=== PATIENT | female | born 1940 | race Caucasian/White ===

== ENCOUNTER → 2020-01-14 10:30 | Outpatient (CLI) | payer MEDICARE, OTHER, SELFPAY ==
--- NOTE | 2020-01-14 10:37 | DI.US.S_ITS ---
PROCEDURE: US RENAL COMPLETE INDICATIONS: NEOPLASM OF KIDNEY TECHNIQUE: Real-time scanning was performed of the kidneys and bladder, with image documentation. COMPARISON: None. FINDINGS: Kidneys: The right kidney is small in size and measures 8.7 cm in length related to previous partial nephrectomy. No recurrent mass is identified involving the right kidney. 2 renal cysts are evident on the right that have a simple appearance and measure up to 2.2 cm in diameter. There is fullness identified within the right renal pelvis, which may represent mild hydronephrosis or parapelvic cysts. No definitive hydronephrosis is present. No shadowing nephrolithiasis is appreciated. The left kidney measures 14 cm in length and the likely demonstrates compensatory hypertrophy related to previous right-sided partial nephrectomy. There is no shadowing nephrolithiasis or hydronephrosis. No solid renal lesions are evident. There are 3 cysts identified on the left kidney with the largest measuring up to 10.2 cm in diameter. Bladder: Pre-void bladder volume is 289 mL. Post-void residual is 0 mL. Pre-void images demonstrate no intraluminal masses or stones. Miscellaneous: No free pelvic fluid. IMPRESSION: 1. Essentially unremarkable bilateral kidneys, status post partial right nephrectomy. No solid renal masses or hydronephrosis is evident. 2. Bilateral renal cysts with the largest located along the inferior margin of the left kidney measuring up to 10 cm. Dictated by: Michael Buck M.D. on 01/14/2020 at 12:01 Approved by: Michael Buck M.D. on 01/14/2020 at 12:05
== END ==
PROVIDERS: PCP Internal Medicine; Referring Provider Specialist; Visit Provider Specialist
DX: C64.1 Malignant neoplasm of right kidney, except renal pelvis (principal); N28.1 Cyst of kidney, acquired; Z90.5 Acquired absence of kidney
CPT/HCPCS: 76770

== ENCOUNTER → 2022-02-02 10:11 | Outpatient (CLI) | payer MEDICARE, OTHER, SELFPAY ==
--- NOTE | 2022-02-02 10:13 | DI.US.S_ITS ---
PROCEDURE: US RENAL COMPLETE INDICATIONS: HISTORY OF RENAL CELL CARCINOMA AND UTI TECHNIQUE: Real-time scanning was performed of the kidneys and bladder, with image documentation. COMPARISON: Located Within [facility], , US RENAL COMPLETE, 01/14/2020, 10:54. FINDINGS: Kidneys: Kidneys are normal in size. Right kidney measures 8.6 cm long; left kidney measures 14.5 cm long. Right renal cortical thickness is 2.2 cm; left renal cortical thickness is 1.5 cm. Renal cortical echotexture is normal. No hydronephrosis. There is a 0.5 cm right renal calculus. There is also 2.2 cm x 1.7 cm x 1.7 cm right inferior pole cyst with possible internal debris and suggestion of irregular cyst wall. No associated vascularity. There are multiple simple cysts in the left kidney. These are seen in the superior pole, midpole, and mid/inferior pole. Superior pole cyst measures 3.1 x 1.7 x 2.4 cm. Mid renal cyst measures 3.4 x 3.4 x 3.3 cm. Mid/inferior pole cyst measures approximately 9.8 x 10.0 x 7.8 cm. No suspicious solid mass lesions. Bladder: Pre-void bladder volume is 223 mL. Post-void residual is 23 mL. Pre-void images demonstrate no intraluminal masses or stones. On pre-void images, bilateral ureteral jets were not visualized with color Doppler interrogation. (Of note, ureteral jets may not be detectable in up to 25% of cases due to insufficient differences in specific gravity between ureteral and bladder urine). Miscellaneous: No free pelvic fluid. IMPRESSION: 1. Left kidney without evidence for renal stones or hydronephrosis. 3 prominent simple left renal cysts are identified and described above. 2. A 0.5 cm nonobstructing right renal stone. No hydronephrosis. 3. A 2.2 cm inferior right renal cyst with suggestion of possible internal debris and possible irregular cyst wall. Recommend further characterization with contrast enhanced CT or MRI using renal mass protocol. Dictated by: Paul Mosley M.D. on 02/02/2022 at 17:14 Approved by: Paul Mosley M.D. on 02/02/2022 at 17:20
== END ==
PROVIDERS: PCP Internal Medicine; Referring Provider Specialist; Visit Provider Specialist
DX: Z08 Encounter for follow-up examination after completed treatment for malignant neoplasm (principal); Z85.528 Personal history of other malignant neoplasm of kidney; Z87.440 Personal history of urinary (tract) infections; N28.1 Cyst of kidney, acquired; N20.0 Calculus of kidney
CPT/HCPCS: 76770

== ENCOUNTER → 2022-03-28 10:22 | Outpatient (CLI) | payer MEDICARE, OTHER, SELFPAY ==
--- NOTE | 2022-03-28 10:32 | DI.MRI.S_ITS ---
PROCEDURE: MR ABDOMEN WO/W CON INDICATIONS: Renal Protocol TECHNIQUE: Coronal HASTE through abdomen and pelvis; axial 2D FLASH in- and [id number] (with and without fat saturation), and breath-hold T2 FSE from the hepatic dome to the bottom of the kidneys. Coronal HASTE MR urogram of kidneys and bladder. Dynamic coronal VIBE during IV gadolinium administration; postgadolinium axial VIBE or 2D FLASH with fat saturation from the hepatic dome through the kidneys. COMPARISON: [facility], CT, CT KUB, 07/08/2016, 14:57. FINDINGS: Image quality: Excellent. Genitourinary system: There are Bosniak 1 and Bosniak 2 renal cysts. None containing overtly suspicious features. Status post right lower posterior partial nephrectomy. There is some soft tissue irregularity and suspected scarring adjacent to the surgical site, with fibrosis signal along the posterior pararenal fascia (01/04). No discrete enhancing mass. The renal veins are patent. Other solid organs: Possible mild hepatic steatosis. The gallbladder is unremarkable. No biliary ductal dilation. The pancreatic duct is prominent as before. There is some pancreatic parenchymal atrophy. Spleen is within normal limits. No adrenal nodule. Nodes and vessels: No adenopathy by size criteria. No abdominal aortic aneurysm. Bowel and peritoneum: No bowel obstruction. No pathologic ascites. Lung bases: Right lung base partially evaluated nodules. These are better assessed on recent CT. Bones and soft tissues: No suspicious soft tissue or osseous lesions. IMPRESSION: Status post right partial nephrectomy with scarring at the surgical site that tethers the adjacent right posterior para renal fascia. No discrete enhancing soft tissue. No hydronephrosis. Bosniak 1 and 2 renal cysts are present. Other incidental/stable findings are described above. Dictated by: Souleymane Hall M.D. on 03/28/2022 at 11:51 Approved by: Souleymane Hall M.D. on 03/28/2022 at 12:01
== END ==
PROVIDERS: PCP Internal Medicine; Referring Provider Specialist; Visit Provider Specialist
DX: Z85.528 Personal history of other malignant neoplasm of kidney (principal); Z87.440 Personal history of urinary (tract) infections; Q61.02 Congenital multiple renal cysts
CPT/HCPCS: 74183

== ENCOUNTER → 2023-06-07 12:17 | Outpatient (CLI) | payer MEDICARE, OTHER, SELFPAY ==
--- NOTE | 2023-06-07 12:18 | DI.US.S_ITS ---
PROCEDURE: US RENAL COMPLETE INDICATIONS: HX RIGHT RCC/PARTIAL NEPHRECTOMY, CYSTS TECHNIQUE: Real-time scanning was performed of the kidneys and bladder, with image documentation. COMPARISON: [facility], , RENAL COMPLETE, 02/02/2022, 11:38. FINDINGS: Kidneys: Patient is status post partial right nephrectomy. Right kidney measures 8.7 cm long; left kidney measures 15.7 cm long. Right renal cortical thickness is 1.5 cm; left renal cortical thickness is 1.6 cm. Renal cortical echotexture is normal. There is some mild right-sided hydronephrosis. No nephrolithiasis. No suspicious solid mass lesions. Bilateral renal cysts are again noted which appear stable from prior examination measuring 2.2 cm maximally on the right and 3 on the left measuring 9.4, 3.5, and 2.7 cm. Bladder: Pre-void bladder volume is 117 mL. Post-void residual is 0 mL. Pre-void images demonstrate no intraluminal masses or stones. On pre-void images, neither ureteral jets are noted with color Doppler interrogation. (Of note, ureteral jets may not be detectable in up to 25% of cases due to insufficient differences in specific gravity between ureteral and bladder urine). Miscellaneous: No free pelvic fluid. IMPRESSION: 1. Stable bilateral renal cysts. 2. Mild right-sided hydronephrosis. 3. No renal calculi identified. 4. No significant postvoid residual. 5. Ureteral jets not identified. 6. Status post prior partial right nephrectomy. Dictated by: Rio Young M.D. on 06/07/2023 at 15:00 Approved by: Rio Young M.D. on 06/07/2023 at 15:19
== END ==
PROVIDERS: PCP Internal Medicine; Referring Provider Specialist; Visit Provider Specialist
DX: N28.1 Cyst of kidney, acquired (principal); Z85.528 Personal history of other malignant neoplasm of kidney; N13.30 Unspecified hydronephrosis; Z98.890 Other specified postprocedural states
CPT/HCPCS: 76770

== ENCOUNTER → 2024-06-21 12:22 | Outpatient (CLI) | payer MEDICARE, OTHER, SELFPAY ==
--- NOTE | 2024-06-21 12:27 | DI.US.S_ITS ---
PROCEDURE: US RENAL COMPLETE INDICATIONS: 83 y/o F w/ h/o right clear cell RCC, please eval. TECHNIQUE: Real-time scanning was performed of the kidneys and bladder, with image documentation. COMPARISON: [facility], MR, MR ABDOMEN WO/W CON, 03/28/2022, 10:29. [facility], CT, CT CHEST WITH CONTRAST, 01/03/2023, 9:36. [facility], , US RENAL COMPLETE, 06/07/2023, 12:29. [facility], , RENAL COMPLETE, 02/02/2022, 11:38. [facility], RENAL COMPLETE, 01/14/2020, 10:54. FINDINGS: Kidneys: Status post right partial nephrectomy. Right kidney measures 8.7 cm long; left kidney measures 13.7 cm long. Right renal cortical thickness is 1.2 cm; left renal cortical thickness is 1.4 cm. There is mild residual right hydronephrosis. There is no left hydronephrosis or obstructive urolithiasis. Bilateral simple renal cysts are present bilaterally, with the largest measuring 1.7 x 1.0 x 1.5 cm on the right (medial inferior pole) and 10.8 x 0.2 x 9.6 cm on the left (lateral inferior pole). Bladder: Pre-void bladder volume is 204 mL. Post-void residual is 0 mL. Pre-void images demonstrate no intraluminal masses or stones. On pre-void images, the left ureteral jet was noted with color Doppler interrogation. (Of note, ureteral jets may not be detectable in up to 25% of cases due to insufficient differences in specific gravity between ureteral and bladder urine). Miscellaneous: No free pelvic fluid. IMPRESSION: 1. Status post right partial nephrectomy with bilateral simple renal cysts. 2. No sonographic evidence of recurrence. 3. Mild persistent right hydronephrosis. Dictated by: Femi Osborne M.D. on 06/21/2024 at 16:44 Approved by: Femi Osborne M.D. on 06/21/2024 at 16:49
== END ==
PROVIDERS: PCP Internal Medicine; Referring Provider Urology; Visit Provider Urology
DX: N13.30 Unspecified hydronephrosis; N28.1 Cyst of kidney, acquired; Z85.528 Personal history of other malignant neoplasm of kidney
CPT/HCPCS: 76770

== ENCOUNTER → 2025-05-20 11:43 | Outpatient (CLI) | payer MEDICARE, OTHER, SELFPAY ==
--- NOTE | 2025-05-20 11:44 | DI.US.S_ITS ---
PROCEDURE: US RENAL COMPLETE
== END ==
LOC: US 11:43
PROVIDERS: PCP Internal Medicine; Referring Provider Urology; Visit Provider Urology
DX: N28.1 Cyst of kidney, acquired (principal); N32.89 Other specified disorders of bladder; Z85.528 Personal history of other malignant neoplasm of kidney
CPT/HCPCS: 76770